=== PATIENT | female | born 1980 | race African-American/Black ===

== ENCOUNTER 2022-07-12 14:00 | Emergency (ER) | payer MEDICAID, MEDICARE, OTHER ==
[~2022-07-12] VITALS: Ht 167.6 cm; Wt 80.0 kg
[2022-07-12] MEDS ORDERED: CEFD300C3 MT (15:14)
[2022-07-12] MEDS ORDERED: CYCL10TA21 MT (15:14)
[2022-07-12] MEDS ORDERED: IBUP-2029 MT (15:14)
[2022-07-12] MEDS ORDERED: KETOROLAC 60MG/2ML VIAL IM ONE (15:15)
[2022-07-12 15:18] VITALS: BP 135/80
== END 2022-07-12 15:24 | disposition home or self-care (01) ==
LOC: ER 14:00
DX: J01.90 Acute sinusitis, unspecified (principal); J45.909 Unspecified asthma, uncomplicated; G80.9 Cerebral palsy, unspecified; G43.909 Migraine, unspecified, not intractable, without status migrainosus; Z88.8 Allergy status to other drugs, medicaments and biological substances; Z88.0 Allergy status to penicillin
CPT/HCPCS: 96372; 99283; J1885